=== PATIENT | female | born 1950 | race African-American/Black ===

== ENCOUNTER 2019-07-03 08:00 | Observation (INO) ==
[2019-07-03] MEDS ORDERED: chlorproMAZINE INJ 25 MG in SODIUM CHLORIDE 0.9% 100 ML IV PRN (09:13)
[2019-07-03] MEDS ORDERED: MYLANTA/LIDO VISC 2:1 300 ML BOTTLE SWISH/SPIT PRN (09:13)
[2019-07-03] MEDS ORDERED: chlorproMAZINE 25 MG TABLET PO PRN (09:13)
[2019-07-03] MEDS ORDERED: ALUMINUM/MAGNES/SIMETH MAX STR 30 ML UDCUP PO PRN (09:13)
[2019-07-03] MEDS ORDERED: PROMETHAZINE INJ 25 MG in SODIUM CHLORIDE 0.9% 50 ML IV PRN (09:13)
[2019-07-03] MEDS ORDERED: MYLANTA/LIDO VISC 2:1 300 ML BOTTLE SWISH/SWAL PRN (09:13)
[2019-07-03] MEDS ORDERED: guaiFENesin 200 MG/10 ML UDCUP PO PRN (09:13)
[2019-07-03] MEDS ORDERED: BENZTROPINE 2 MG/2 ML AMP IV PRN (09:13)
[2019-07-03] MEDS ORDERED: LOPERAMIDE 2 MG CAPSULE PO PRN ×2 (09:13)
[2019-07-03] MEDS ORDERED: chlorproMAZINE INJ 50 MG in SODIUM CHLORIDE 0.9% 100 ML IV PRN (09:13)
[2019-07-03] MEDS ORDERED: traMADol 50 MG TABLET PO PRN (09:13)
[2019-07-03] MEDS ORDERED: LACTULOSE 20 GM/30 ML UDCUP PO PRN (09:13)
[2019-07-03] MEDS ORDERED: diphenhydrAMINE CAP 25 MG CAPSULE PO PRN (09:13)
[2019-07-03] MEDS ORDERED: ONDANSETRON 4 MG/2 ML VIAL IV PRN (09:13)
[2019-07-03] MEDS ORDERED: MAGNESIUM HYDROXIDE SUSP 30 ML UDCUP PO PRN (09:13)
[2019-07-03] MEDS ORDERED: TEMAZEPAM 7.5 MG CAPSULE PO PRN (09:13)
[2019-07-03] MEDS ORDERED: ACETAMINOPHEN 325 MG TABLET PO PRN (09:13)
[2019-07-03] MEDS ORDERED: ALPRAZolam 0.25 MG TABLET PO PRN (09:13)
[2019-07-03] MEDS ORDERED: HEPARIN LOCK FLUSH 500 UNIT/5 ML SYRINGE IV PRN (09:37)
[2019-07-03] MEDS ORDERED: DEXAMETHASONE 10 MG/1 ML VIAL IV ONE (10:00)
[2019-07-03] MEDS ORDERED: GRANISETRON 1 MG/1 ML VIAL IV ONE (10:00)
[2019-07-03 10:31] LABS: Basophils % 0.5 % (0.0-0.8); Hematocrit 36.8 VOL% (35.7-47.0); Hemoglobin 11.7 GM/DL (12.0-16.0); Lymphocytes # 1.5 10*3/uL (1.4-4.0); Lymphocytes % 73.9 % (21.3-54.2); Mean Corpuscular HGB Conc 31.8 GM/DL (32-36); Mean Corpuscular Volume 88.9 FL (87-102); Mean Platelet Volume 10.3 FL (9.6-12.0); Neutrophils % 16.6 % (38.7-73.9); Platelet Count 123 T/CUMM (130-400); Red Blood Count 4.14 MC/CUMM (3.8-5.5); Red Cell Distribution Width 14.4 % (9.3-17.3)
[2019-07-03 10:50] LABS: Eosinophils 3 % (0-10); Hypochromasia 1+; Lymphocytes 73 % (20-55); Nucleated Red Blood Cells 1 (0-5); Platelet Estimate Normal; Segmented Neutrophils 18 % (50-85); Total Cells Counted 100
[2019-07-03 10:51] LABS: Atypical Lymphocytes Few
[2019-07-03] MEDS ORDERED: DEXTROSE 5% IV ONE (11:00)
[2019-07-03] MEDS ORDERED: LEUCOVORIN INJ 600 MG in DEXTROSE 5% 250 ML IV ONE (11:00)
[2019-07-03] MEDS ORDERED: PANITUMUMAB 400 MG in SODIUM CHLORIDE 0.9% 100 ML IV ONE (11:00)
[2019-07-03] MEDS ORDERED: OXALIPLATIN IV ONE (11:00)
[2019-07-03 11:08] LABS: Albumin 3.9 G/DL (3.4-5.0); Bilirubin,Total 1.2 MG/DL (0.2-1.0); Calcium 9.4 MG/DL (8.5-10.1); Osmolality,Calculated 275.8 MOS/KG (273-304); Total Protein 7.7 G/DL (6.4-8.3)
[2019-07-03] MEDS: FILGRASTIM-SNDZ 300 MCG/0.5 ML SYRINGE SUBCUT SCH (11:42)
[2019-07-04] MEDS ORDERED: LEVOTHYROXINE 75 MCG TABLET PO SCH (06:30)
[2019-07-04 06:41] LABS: Hematocrit 34.5 VOL% (35.7-47.0); Lymphocytes # 1.5 10*3/uL (1.4-4.0); Lymphocytes % 74.7 % (21.3-54.2); Mean Corpuscular HGB Conc 31.9 GM/DL (32-36); Mean Corpuscular Volume 88.9 FL (87-102); Mean Platelet Volume 11.1 FL (9.6-12.0); Monocytes % 9.8 % (1.7-12.7); NRBC # 0.02 10*3/uL; Neutrophils % 13.5 % (38.7-73.9); Platelet Count 115 T/CUMM (130-400); Red Blood Count 3.88 MC/CUMM (3.8-5.5); Red Cell Distribution Width 14.6 % (9.3-17.3); White Blood Count 1.9 T/CUMM (4-12)
[2019-07-04 07:16] LABS: Atypical Lymphocytes Few; Band Neutrophils 3 % (0-10); Hypochromasia 1+; Lymphocytes 75 % (20-55); Nucleated Red Blood Cells 1 (0-5); Ovalocytes Slight; Platelet Estimate Decreased; Segmented Neutrophils 15 % (50-85); Total Cells Counted 100
[2019-07-04] MEDS ORDERED: ATORVASTATIN 80 MG TABLET PO SCH (09:00)
[2019-07-04] MEDS: FILGRASTIM-SNDZ 300 MCG/0.5 ML SYRINGE SUBCUT SCH (09:04)
[2019-07-04 10:08] VITALS: BP 119/64
[2019-07-05] MEDS ORDERED: GRANISETRON 1 MG/1 ML VIAL IV ONE (10:00)
== END 2019-07-04 12:25 | disposition home or self-care (01) ==
LOC: N.4E
PROVIDERS: ADMIT Specialist; ATTEND Specialist

== ENCOUNTER 2019-07-28 21:38 | Inpatient (IN) ==
[2019-07-29] MEDS ORDERED: PIPERACILLIN/TAZOBACTAM 3,375 MG in SODIUM CHLORIDE 0.9% 100 ML IV STA (00:22)
[2019-07-29] MEDS ORDERED: VANCOMYCIN INJ 1,000 MG in SODIUM CHLORIDE 0.9% 250 ML IV STA (00:22)
[2019-07-29 02:26] LABS: Basophils % 0.7 % (0.0-0.8); Eosinophils # 0.1 10*3/uL (0.0-0.87); Eosinophils % 1.2 % (0.00-10.9); Hematocrit 36.2 VOL% (35.7-47.0); Hemoglobin 11.2 GM/DL (12.0-16.0); Immature Granulocytes % 0.7 %; Immature Granulocytes Absolute 0.03 #; Lymphocytes # 1.5 10*3/uL (1.4-4.0); Lymphocytes % 35.3 % (21.3-54.2); Mean Corpuscular HGB Conc 30.9 GM/DL (32-36); Mean Corpuscular Volume 91.2 FL (87-102); Monocytes % 12.8 % (1.7-12.7); Neutrophils % 49.3 % (38.7-73.9); Platelet Count 191 T/CUMM (130-400); Red Blood Count 3.97 MC/CUMM (3.8-5.5); Red Cell Distribution Width 16.8 % (9.3-17.3); White Blood Count 4.1 T/CUMM (4-12)
[2019-07-29] MEDS ORDERED: VANCOMYCIN 1,000 MG VIAL ONE (02:39)
[2019-07-29 02:44] LABS: Albumin 3.5 G/DL (3.4-5.0); Bilirubin,Total 1.8 MG/DL (0.2-1.0); Calcium 9.4 MG/DL (8.5-10.1); Osmolality,Calculated 266.4 MOS/KG (273-304)
[2019-07-29 03:27] LABS: Apearance,Urine CLOUDY (Clear); Bilirubin,Urine Negative (Negative); Blood, Urine Negative (Negative); Glucose,Urine (UA) Negative (Negative); Ketones,Urine Negative (Negative); Mucus,Urine Many /LPF (Occasional); Nitrite,Urine Negative (Negative); Protein,Urine Negative; RBC,Urine 4 /HPF (0-4); Squamous Epithelial Cell,Urine Occasional /HPF (0-10); Urine Color Yellow (Yellow); Urine Specific Gravity 1.019 (1.001-1.035); Urine Urobilinogen < 2.0 EU/DL (0.2-1.0); WBC,Urine 148 /HPF (0-6)
[2019-07-29] MEDS ORDERED: NICOTINE 21 MG/24 HR PATCH TRANSDERM PRN (04:07)
[2019-07-29] MEDS ORDERED: ACETAMINOPHEN 325 MG TABLET PO PRN (04:07)
[2019-07-29] MEDS ORDERED: guaiFENesin/DM ER 600-30 MG TABLET PO PRN (04:07)
[2019-07-29] MEDS ORDERED: MORPHINE 4 MG/1 ML VIAL IV PRN (04:07)
[2019-07-29] MEDS ORDERED: hydrALAZINE 20 MG/1 ML VIAL IV PRN (04:07)
[2019-07-29] MEDS ORDERED: ONDANSETRON 4 MG/2 ML VIAL IV PRN (04:07)
[2019-07-29] MEDS ORDERED: diphenhydrAMINE CAP 25 MG CAPSULE PO PRN (04:07)
[2019-07-29] MEDS ORDERED: ALUMINUM/MAGNES/SIMETH MAX STR 30 ML UDCUP PO PRN (04:07)
[2019-07-29] MEDS ORDERED: SODIUM POLYSTYRENE SULFATE 15 GM/60 ML BOTTLE PO STA (07:07)
[2019-07-29 08:25] LABS: INR 1.1; PT Patient Result 11.9 SECS (9.6-12.2)
[2019-07-29] MEDS: ENOXAPARIN 40 MG/0.4 ML SYRINGE SUBCUT SCH (09:10)
[2019-07-29] MEDS: PIPERACILLIN/TAZOBACTAM 3,375 MG in SODIUM CHLORIDE 0.9% 100 ML IV SCH ×2 (10:58→18:16)
[2019-07-29] MEDS: VANCOMYCIN INJ 1,250 MG in SODIUM CHLORIDE 0.9% 250 ML IV SCH (15:04)
[2019-07-30] MEDS: VANCOMYCIN INJ 1,250 MG in SODIUM CHLORIDE 0.9% 250 ML IV SCH (03:06)
[2019-07-30] MEDS: PIPERACILLIN/TAZOBACTAM 3,375 MG in SODIUM CHLORIDE 0.9% 100 ML IV SCH ×2 (03:08→10:13)
[2019-07-30] MEDS ORDERED: LEVOTHYROXINE 75 MCG TABLET PO SCH (06:30)
[2019-07-30 06:39] LABS: Calcium 8.7 MG/DL (8.5-10.1); Osmolality,Calculated 286.1 MOS/KG (273-304)
[2019-07-30] MEDS ORDERED: POTASSIUM CHLORIDE 20 MEQ TABLET PO ONE (07:48)
[2019-07-30] MEDS ORDERED: SODIUM CHLORIDE 0.9% 1,000 ML IV SCH (08:00)
[2019-07-30] MEDS: ENOXAPARIN 40 MG/0.4 ML SYRINGE SUBCUT SCH (09:19)
[2019-07-30 12:18] VITALS: BP 117/59
[2019-07-30] MEDS ORDERED: HEPARIN LOCK FLUSH 500 UNIT/5 ML SYRINGE IV ONE (13:58)
== END 2019-07-30 15:45 | disposition home or self-care (01) | DRG 603 ==
LOC: N.ED 21:38 → N.EDINP 07-29 04:07 → N.4E 07-29 05:14
PROVIDERS: ADMIT Internal Medicine; ATTEND Internal Medicine